=== PATIENT | male | born 1950 | race Caucasian/White ===

== ENCOUNTER 2019-07-25 07:57 | Day surgery (SDC) | payer MEDICARE, OTHER ==
[2019-07-22 11:00] VITALS: BMI 27.1
--- NOTE | 2019-07-24 16:28 | HP ---
HISTORY OF PRESENT ILLNESS: Mr. Valentine is a very pleasant 69-year-old man, here today to discuss lower back pain that he has had on and off for years, which turned into a right lower extremity roughly 6 weeks ago. Physical Therapy seemed to help that to a point where now he has minimal anterior leg pain and said he started to develop symptoms of severe neurogenic claudication over the course of the last 10 days, has developed footdrop bilaterally and has a great deal of difficulty ambulating because of this. Today, he is actually in a wheelchair. He has treated this only with the aforementioned physical therapy and home exercises, which again he reports has helped to some degree. Pain has worsened dramatically when standing or walking. MRI on disk from [facility] provided reveals severe lateral recess stenosis and bilateral neural foraminal stenosis at L4-L5 that could best explain both the pains, claudication, and motor dysfunction that he is experiencing. PHYSICAL EXAMINATION: The patient is alert and oriented x3. Cranial nerve function is maintained grossly in cranial nerves 2 through 12. Gait is severely altered with a stepping gait. Lower extremity motor exam reveals 5-/5 strength in bilateral quadriceps, hamstrings, and hip flexors, 3/5 in bilateral ankle dorsiflexion, but slightly weaker on the right than the left, 4/5 in plantar flexion bilaterally. PAST MEDICAL HISTORY: Significant for hypercholesterolemia, osteoarthritis, gout, hypertension. PAST SURGICAL HISTORY: Herniorrhaphy; detached retina repair x2; left eye cystectomy; rotator cuff repair, laterality unspecified. CURRENT MEDICATIONS: 1. Allopurinol. 2. Amlodipine. 3. Omeprazole. 4. Aspirin. 5. Tamsulosin. 6. Meloxicam. 7. Atorvastatin. ALLERGIES: NO KNOWN DRUG ALLERGIES. ASSESSMENT: Lumbar spinal stenosis, bilateral footdrop. PLAN: Dr. Duncan met with the patient, reviewed his imaging, and advocated for an L4-L5 decompression and foraminotomy. He explained to the patient the risks, benefits, and alternatives to the procedure. The patient expressed understanding and would like to move forward with surgery as discussed. I do believe that he is mentally competent and capable of making medical decisions for himself. We will move forward with surgery as planned. Job ID: [id number]
[2019-07-25 09:03] LABS: #Eosinphils 0.4 thou/uL (0.0-0.7); #Lymphocytes 1.8 thou/uL (1.20-3.40); #Monocytes 0.7 thou/uL (0.11-0.59); #Neutrophils 7.1 thou/uL (1.40-6.50); %Basophils 0.3 % (0.0-1.0); %Eosinophils 3.6 % (0.0-10.0); %Lymphocytes 18.1 % (21.0-51.0); %Monocytes 6.7 % (0.0-10.0); %Neutrophils 71.4 % (42.0-75.0); Hemoglobin 15.7 g/dL (14.0-18.0); Mean Corpuscular HGB CONC 33.3 g/dL (32.0-36.0); Mean Corpuscular Hemoglobin 33.2 pg (27.0-31.0); Mean Corpuscular Volume 99.7 fL (78.0-98.0); Mean Platelet Volume 9.1 fL (7.4-10.4); Platelet Count 220 thou/uL (130-400); RBC Distribution Width 11.7 % (11.5-14.5); Red Blood Cell (RBC) Count 4.73 mill/uL (4.70-6.10); White Blood Cell (WBC) Count 9.9 thou/uL (4.8-10.8)
[2019-07-25 09:29] LABS: Anion Gap 12 mmol/L (10-20); BUN (Urea Nitrogen) 15 mg/dL (8.4-25.7); Calc. Creatinine Clearance 115 mL/min (70-130); Calcium 9.2 mg/dL (7.8-10.44); Carbon Dioxide 24 mmol/L (23-31); Chloride 107 mmol/L (98-107); Estimated GFR-MDRD Greater than 90; Glucose 93 mg/dL (80-115); Potassium 4.3 mmol/L (3.5-5.1); Sodium 139 mmol/L (136-145)
[2019-07-25] MEDS ORDERED: Fentanyl 100 MCG/2 ML VIAL ONE ×3 (09:55→12:09)
[2019-07-25] MEDS ORDERED: Bupivacaine PF 0.5% 30 ML VIAL ONE (10:02)
[2019-07-25] MEDS ORDERED: PHENYLEPHRINE-NS 100 MCG/ML 10 ML SYRINGE ONE (10:07)
[2019-07-25] MEDS ORDERED: PROPOFOL 200 MG/20 ML VIAL ONE (10:07)
[2019-07-25] MEDS ORDERED: Dexamethasone 20 MG/5 ML VIAL ONE (10:07)
[2019-07-25] MEDS ORDERED: Glycopyrrolate 0.2 MG/ML 5 ML SYRINGE ONE (10:07)
[2019-07-25] MEDS ORDERED: Rocuronium Bromide 10 MG/ML (10ML VIAL) ONE (10:07)
[2019-07-25] MEDS ORDERED: Ondansetron PF 4 MG/2 ML Vial ONE (10:07)
[2019-07-25] MEDS ORDERED: Lidocaine 1% PF 5 ML VIAL ONE (10:07)
--- NOTE | 2019-07-25 12:27 | OP ---
DATE OF PROCEDURE: 07/25/2019 INJECTION MOLDING MACHINE SETTER: Hema Hernández PA-C INDICATION: Pain and weakness. DIAGNOSIS: Severe lumbar stenosis, L4-5. PROCEDURE PERFORMED: L4-L5 lumbar decompression. ANESTHESIA: General. DESCRIPTION OF PROCEDURE: The patient was brought into the operating room, placed under general anesthesia. He was flipped from the supine to prone position on the operating room table. A linear incision was planned at L4-L5. After prepping and draping and after an appropriate operative pause, the incision was created. The soft tissues were swept away from midline. Self-retaining retractors were placed. The C-arm images obtained to confirm the appropriate level. An Adson rongeur was used to remove the spinous process along the inferior aspect of L4 and the superior aspect of L5. The laminectomy was completed using a high-speed cutting drill bit as well as 2, 3, and 4 mm Kerrisons. The laminectomy was extended laterally to encompass the medial aspect of the facet joint. The patient's yellow ligament as well as epidural fat were a very dark color, which is atypical. I did not see any extra tissue consistent with neoplasm, but did send both a microbiologic sample as well as soft tissues sample of the yellow ligament for further analysis given the dark discoloration and the abnormal color of its tissues. After completing the decompression, the wound was irrigated. Hemostasis was maintained throughout. The wound was then closed in anatomic layers, and a pressure dressing was applied. There were no known procedural complications. Job ID: [id number]
[2019-07-25] MEDS ORDERED: Morphine 4 MG/ML VIAL ONE (12:33)
[2019-07-25] MEDS ORDERED: Tamsulosin HCl 0.4 MG CAP ONE (12:33)
[2019-07-25] MEDS ORDERED: Morphine 2 MG/ML SYRINGE ONE (12:57)
[2019-07-25] MEDS ORDERED: HYDROcodone/Acetaminophen 5/325 mg Tablet ONE (13:26)
== END 2019-07-25 14:45 | disposition home or self-care (01) ==
LOC: SDC 07:57
PROVIDERS: ATTEND Neurological Surgery
PROC: 01NB0ZZ Release Lumbar Nerve, Open Approach (ICD-10-PCS; principal; 2019-07-25)
DX: M48.062 Spinal stenosis, lumbar region with neurogenic claudication (principal); M47.26 Other spondylosis with radiculopathy, lumbar region; E78.00 Pure hypercholesterolemia, unspecified; I10 Essential (primary) hypertension; M19.90 Unspecified osteoarthritis, unspecified site; Z79.82 Long term (current) use of aspirin; Z79.899 Other long term (current) drug therapy
CPT/HCPCS: 36415; 76000; 80048; 85025; 87070; 87205; 88305; 93005; 93010; J0690; J2270; J3010; S0020